=== PATIENT | female | born 1985 | race Caucasian/White ===

== ENCOUNTER 2016-06-28 16:22 | Inpatient (IN) | payer OTHER ==
[~2016-06-28] VITALS: Ht 162.6 cm; Wt 69.0 kg
[~2016-06-28 16:22] MED LIST: ACETAMINOPHEN325 MG PO; BACTRIM DS1 TAB PO; IBUPROFEN400 MG PO; PERCOCET1 TA1 PO
[2016-06-28 16:48] VITALS: BP 95/48
--- NOTE | 2016-06-28 17:01 | History & Physical Report ---
Admission Admit Date 06/28/16 Information Source Information Source: Self Reliability: Fair History Chief Complaint Chest stuffiness and back pain History of Present Illness 30 y/o female patient with PMH of IV drug use presented to [facility] ED with the c/o low back pain associated with fever and chills. On inital evaluation in ED there she was found to have UTI with possible pyelonephritis with hypotension. SHe was given ceftriaxone and zithromax and started on IV hydartion. She is transfered to [facility] for bed non availability in [facility]. On arrival to [facility] she was drowsy possibly from heroine intoxication and could not provide detailed history except for the c/o back pain, body aches and fever with chills for couple of days. Patient History 1. History of MRSA infection 2. Abscess of dorsum of right hand see above HPI 3. Heroin abuse 4. Asthma Social History lives in community h/o smoking cigarettes and mariunna no h/o alcohol abuse h/o IV drug abuse Family History MOTHER, ; Cause: Brain tumor. FATHER, , Age 50-60; Cause: Liver cancer, primary, with metastasis from liver to other site. Relation not specified for: FHx: brain tumor Medications and Allergies Medications Current Medications Sig/Chris Start time Last Medication Dose Route Stop Time Status Admin Pantoprazole Sodium 40 MG DAILY@0600 06/29 0600 AC IV Methadone HCl 10 MG TID 06/28 2200 AC PO Enoxaparin Sodium 40 MG DAILY 06/28 2005 UNVr SC Ceftriaxone Sodium/ 50 ML DAILY 06/28 1715 AC 06/28 Dextrose IV 1723 Azithromycin 500 MG DAILY 06/28 1650 AC 06/28 Sodium Chloride 250 ML IV 1740 Acetaminophen 650 MG Q6H PRN 06/28 164 AC PO Ondansetron HCl 4 MG Q6H PRN 06/28 1645 AC IV Sodium Chloride 1,000 ML ASDIRECTED 06/28 1645 06/28 IV 1809 Allergies Coded Allergies: No Known Drug Allergy (05/24/15) Review of Systems Constitutional Fever, Chills, Sweats, Weakness. Denies: Malaise. Eyes Denies: Vision Change, Conjunctival Inflammation, Eyelid Inflammation. ENT Denies: Nasal Congestion, Throat Pain, Throat Swelling. Respiratory Denies: Cough, Dry, SOB w/exertion, Wheezing, Hemoptysis. Cardiovascular Chest Pain. Denies: Palpitations, Orthopnea, PND, Edema. Gastrointestinal Denies: Nausea, Vomiting, Abdominal Pain, Diarrhea, Constipation. Genitourinary Dysuria, Frequency. Denies: Incontinence, Hematuria, Retention. Musculoskeletal Back Pain. Neurological Denies: Change in speech, Confusion, Seizures. Physical Exam Vital Signs / I&Os Vital Signs Date Time Temp Pulse Resp B/P Pulse O2 O2 Flow FiO2 Ox Delivery Rate 06/28 1851 98.1 81 20 108/67 100 Nasal 5.0 Cannula 06/28 1730 5.0 06/28 1648 97.5 73 20 95/48 88 Room Air General Appearance Alert, Oriented X3, No acute distress HEENT PERRLA, Moist mucous membranes Lungs Clear to auscultation Neck Supple, No JVD Cardiovascular Regular rate and rhythm, Normal S1 and S2 Abdomen Soft, No tenderness, No guarding, No rebound Extremities No edema Skin No Rashes, No Breakdown Neurological No lateralizing signs, patient drowsy LAB Results wbc: 10.9 H/H: 13/37.4 PLTS: 144 UA: cloudy, nitrite positive, WBC >50, Bacteria: many NA: 130 K: 3.7 CHLORIDE: 93 CO2: 21 GLUCOSE: 122 BUN: 15 CR: 0.5 LACTIC ACID: 1.4 AST: 54 ALT: 68 ALK PHOS: 76 TOTAL PROTEIN: 7.3 ALBUMIN: 3.1 URINE CULTURE/bLOOD CULTURE PENDING: NEEDS TO COLLECT REPORTS FROM [facility] Imaging Chest x-ray; no cardiopulmonary disease Assessment and Plan Problem List 1. Pyelonephritis Plan patient with SIRS symptoms with posiive UA and cva tenderness on ceftriaxone send UA and urine culture send blood culture 2. Heroin abuse Plan says uses heroine <1gm everyday monitor for wihdrawal symptoms started on methadone 10mh tid, titrate up as needed consider drug treatment program at the time of discharge 3. History of MRSA infection Plan needs to be on contact isolation 4. Nicotine dependence Plan counselled about smoking cessation apply nicotine patch if patient agrees 5. Asthma Plan stable duo nebs prn DVT px: Sq heparin GI Px: PPI E&M Codes Admission: Inpt-High/98962
--- NOTE | 2016-06-28 17:01 | History & Physical Report ---
Admission Admit Date 06/28/16 Information Source Information Source: Self Reliability: Fair History Chief Complaint Chest stuffiness and back pain History of Present Illness 30 y/o female patient with PMH of IV drug use presented to [facility] ED with the c/o low back pain associated with fever and chills. On inital evaluation in ED there she was found to have UTI with possible pyelonephritis with hypotension. SHe was given ceftriaxone and zithromax and started on IV hydartion. She is transfered to [facility] for bed non availability in [facility]. On arrival to [facility] she was drowsy possibly from heroine intoxication and could not provide detailed history except for the c/o back pain, body aches and fever with chills for couple of days. Patient History 1. History of MRSA infection 2. Abscess of dorsum of right hand see above HPI 3. Heroin abuse 4. Asthma Social History lives in community h/o smoking cigarettes and mariunna no h/o alcohol abuse h/o IV drug abuse Family History MOTHER, ; Cause: Brain tumor. FATHER, , Age 50-60; Cause: Liver cancer, primary, with metastasis from liver to other site. Relation not specified for: FHx: brain tumor Medications and Allergies Medications Current Medications Sig/Chris Start time Last Medication Dose Route Stop Time Status Admin Pantoprazole Sodium 40 MG DAILY@0600 06/29 0600 AC IV Methadone HCl 10 MG TID 06/28 2200 AC PO Enoxaparin Sodium 40 MG DAILY 06/28 2005 UNVr SC Ceftriaxone Sodium/ 50 ML DAILY 06/28 1715 AC 06/28 Dextrose IV 1723 Azithromycin 500 MG DAILY 06/28 1650 AC 06/28 Sodium Chloride 250 ML IV 1740 Acetaminophen 650 MG Q6H PRN 06/28 164 AC PO Ondansetron HCl 4 MG Q6H PRN 06/28 1645 AC IV Sodium Chloride 1,000 ML ASDIRECTED 06/28 1645 06/28 IV 1809 Allergies Coded Allergies: No Known Drug Allergy (05/24/15) Review of Systems Constitutional Fever, Chills, Sweats, Weakness. Denies: Malaise. Eyes Denies: Vision Change, Conjunctival Inflammation, Eyelid Inflammation. ENT Denies: Nasal Congestion, Throat Pain, Throat Swelling. Respiratory Denies: Cough, Dry, SOB w/exertion, Wheezing, Hemoptysis. Cardiovascular Chest Pain. Denies: Palpitations, Orthopnea, PND, Edema. Gastrointestinal Denies: Nausea, Vomiting, Abdominal Pain, Diarrhea, Constipation. Genitourinary Dysuria, Frequency. Denies: Incontinence, Hematuria, Retention. Musculoskeletal Back Pain. Neurological Denies: Change in speech, Confusion, Seizures. Physical Exam Vital Signs / I&Os Vital Signs Date Time Temp Pulse Resp B/P Pulse O2 O2 Flow FiO2 Ox Delivery Rate 06/28 1851 98.1 81 20 108/67 100 Nasal 5.0 Cannula 06/28 1730 5.0 06/28 1648 97.5 73 20 95/48 88 Room Air General Appearance Alert, Oriented X3, No acute distress HEENT PERRLA, Moist mucous membranes Lungs Clear to auscultation Neck Supple, No JVD Cardiovascular Regular rate and rhythm, Normal S1 and S2 Abdomen Soft, No tenderness, No guarding, No rebound Extremities No edema Skin No Rashes, No Breakdown Neurological No lateralizing signs, patient drowsy LAB Results wbc: 10.9 H/H: 13/37.4 PLTS: 144 UA: cloudy, nitrite positive, WBC >50, Bacteria: many NA: 130 K: 3.7 CHLORIDE: 93 CO2: 21 GLUCOSE: 122 BUN: 15 CR: 0.5 LACTIC ACID: 1.4 AST: 54 ALT: 68 ALK PHOS: 76 TOTAL PROTEIN: 7.3 ALBUMIN: 3.1 URINE CULTURE/bLOOD CULTURE PENDING: NEEDS TO COLLECT REPORTS FROM [facility] Imaging Chest x-ray; no cardiopulmonary disease Assessment and Plan Problem List 1. Pyelonephritis Plan patient with SIRS symptoms with posiive UA and cva tenderness on ceftriaxone send UA and urine culture send blood culture 2. Heroin abuse Plan says uses heroine <1gm everyday monitor for wihdrawal symptoms started on methadone 10mh tid, titrate up as needed consider drug treatment program at the time of discharge 3. History of MRSA infection Plan needs to be on contact isolation 4. Nicotine dependence Plan counselled about smoking cessation apply nicotine patch if patient agrees 5. Asthma Plan stable duo nebs prn DVT px: Sq heparin GI Px: PPI E&M Codes Admission: Inpt-High/18785
[2016-06-28 18:51] VITALS: BP 108/67
[2016-06-28 22:27] VITALS: BP 117/78
[2016-06-29 02:17] VITALS: BP 93/40
[2016-06-29 07:00] VITALS: BP 107/64
[2016-06-29 10:27] VITALS: BP 98/57
[2016-06-29 15:01] VITALS: BP 98/43
--- NOTE | 2016-06-29 15:51 | Progress Note ---
Subjective General patient is seen ay=t the bedside still c/o back pain, whihc is non specific, has blood cultures positive for staph, complete report needs to be collected from [facility] Constitutional Sweats. Denies: Fever, Chills, Weakness. Eyes Denies: Conjunctival Inflammation, Eyelid Inflammation, Redness. ENT Denies: Nasal Congestion, Mouth Pain, Mouth Swelling, Throat Pain, Throat Swelling. Respiratory Denies: Cough, Dry, SOB w/exertion, Wheezing, Hemoptysis, Pleuritic Pain. Cardiovascular Denies: Chest Pain, Palpitations, Orthopnea, PND, Edema. Gastrointestinal Denies: Nausea, Vomiting, Abdominal Pain, Diarrhea, Constipation, Melena. Genitourinary Dysuria. Musculoskeletal Back Pain. Neurological Denies: Incoordination, Change in speech, Confusion, Seizures. Physical Exam Vital Signs / I&Os Vital Signs Date Time Temp Pulse Resp B/P Pulse O2 O2 Flow FiO2 Ox Delivery Rate 06/29 1501 98.1 75 20 98/43 94 Room Air 0.0 06/29 1223 99.3 06/29 1027 100.0 89 22 98/57 96 Room Air 0.0 06/29 0959 2.0 06/29 0700 99.3 86 18 107/64 100 Nasal 2.0 Cannula 06/29 0423 2.0 06/29 0217 98.1 69 16 93/40 100 Nasal 2.0 Cannula 06/28 2227 98.2 78 20 117/78 100 Nasal 2.0 Cannula 06/28 2106 2.0 06/28 1851 98.1 81 20 108/67 100 Nasal 5.0 Cannula 06/28 1730 5.0 06/28 1648 97.5 73 20 95/48 88 Room Air I&O 06/28 0800 06/28 1600 06/29 0000 Intake Total 0 Output Total Balance 0 General Appearance Alert, Oriented X3, No acute distress HEENT PERRLA, Moist mucous membranes Lungs Clear to auscultation Cardiovascular Regular rate and rhythm, Normal S1 and S2, No murmurs, gallops, rubs Abdomen Soft, No tenderness, No guarding, No rebound Extremities No edema Neurological No lateralizing signs, sllepy but easily arousable LAB Results Laboratory Tests 06/29 06/29 06/29 0535 1100 1100 Chemistry Plasma Sodium (136 - 145 mmol/L) 138 Plasma Potassium (3.5 - 5.1 mmol/L) 3.7 Plasma Chloride (98 - 107 mmol/L) 106 CO2 (Enzymatic) (21 - 32 mmol/L) 23 BUN (7 - 18 mg/dL) 14 Creatinine (0.6 - 1.3 mg/dL) 0.6 Est GFR ( Amer) (mL/min) >60 Est GFR (Non-Af Amer) (mL/min) >60 Glucose (70 - 110 mg/dL) 84 Plasma Calcium (8.5 - 10.1 mg/dL) 7.9 Plasma Magnesium (1.8 - 2.4 mg/dL) 1.9 Total Bilirubin (0.0 - 1.0 mg/dL) 0.9 Direct Bilirubin (0 - 0.3 mg/dL) 0.4 AST (15 - 37 U/L) 34 ALT (12 - 78 U/L) 56 Alkaline Phosphatase (46 - 116 U/L) 72 Troponin Cancelled B-Natriuretic Peptide Cancelled Total Protein (6.4 - 8.2 g/dL) 5.8 Albumin (3.3 - 5.0 g/dL) 2.1 Hematology WBC (4.5 - 11.5 K/uL) 12.2 RBC (4.00 - 5.20 M/uL) 3.75 Hgb (12.0 - 16.0 gm/dL) 11.1 Hct (36.0 - 46.0 %) 33.8 MCV (80 - 100 fL) 90 MCH (26 - 34 pg) 30 RDW (11.6 - 14.8 %) 14.6 Neut % (Auto) (50 - 75 %) 79.8 Lymph % (Auto) (25 - 40 %) 13.6 [place] % (Auto) (3 - 14 %) 6.0 Eos % (Auto) (0 - 4 %) 0.5 Baso % (Auto) (0 - 2 %) 0.1 Plt Count, EDTA (150 - 400 K/uL) 137 PUBS MCHC (31 - 37 g/dL) 33 Assessment and Plan Problem List 1. Pyelonephritis Plan on ceftriaxone, zithromax moniotr WBC in am f/u urine culture 2. Bacteremia Plan final report still pending and needs to be collected form [facility] Vancomycin added for possible MRSA bacteremia 3. Nicotine dependence Plan encourage smoking cessation when more awake 4. Heroin abuse Plan moniotr for withdrawal on methadone 10mg TID, adjust as needed 5. Asthma Plan stable E&M Codes Rounding: Inpt-High/[id number]
[2016-06-29 19:04] VITALS: BP 97/52
[2016-06-29 22:30] VITALS: BP 114/53
[2016-06-30] VITALS (7 sets, daily range): BP systolic 87–116; BP diastolic 44–60
--- NOTE | 2016-06-30 11:32 | Progress Note ---
Subjective General RN reports pt spiked a fever again this morning. Pt states she is not feeling well and continues to complain of bilateral flank pain and mild nausea. She denies any vomiting. Pt denies dysuria. No other complaints or concerns at this time. Physical Exam Vital Signs / I&Os Vital Signs Date Time Temp Pulse Resp B/P Pulse O2 O2 Flow FiO2 Ox Delivery Rate 06/30 1116 98.6 82 18 91/46 92 Room Air 06/30 0719 101.3 95 18 111/58 95 Room Air 06/30 0207 99.7 63 16 116/60 96 Room Air 0.0 06/29 2230 98.2 83 18 114/53 96 Room Air 0.0 06/29 2128 Room Air 06/29 1904 98.6 85 20 97/52 94 Room Air 06/29 1501 98.1 75 20 98/43 94 Room Air 0.0 06/29 1223 99.3 I&O 06/30 0000 06/29 1600 06/29 0800 Intake Total 1850 300 Output Total 750 400 Balance 1100 300 -400 Other GENERAL: NAD; Pt laying comfortably in bed HEENT: AT/NC; PERRLA, EOMI; MM Moist CARDIAC: RRR, No M/R/G appreciated PULM: Clear to auscultation bilaterally ABD: Soft, NT, ND, Positive BS in all quadrants, Positive bilateral CVA tenderness; No hepatosplenomegaly appreciated EXT: No C/C/E in bilateral upper and lower extremity; No calve tenderness bilaterally SKIN: Warm, dry, pink, and intact NEURO: Alert and oriented x3; Following all commands PSYCH: Normal mood and affect LAB Results Laboratory Tests 06/30 06/30 06/30 06/30 1045 0530 0530 0530 Chemistry Plasma Sodium (136 - 145 mmol/L) 135 Plasma Potassium (3.5 - 5.1 mmol/L) 3.5 Plasma Chloride (98 - 107 mmol/L) 103 CO2 (Enzymatic) (21 - 32 mmol/L) 23 BUN (7 - 18 mg/dL) 8 Creatinine (0.6 - 1.3 mg/dL) 0.5 Est GFR ( Amer) (mL/min) >60 Est GFR (Non-Af Amer) (mL/min) >60 Glucose (70 - 110 mg/dL) 98 Plasma Calcium (8.5 - 10.1 mg/dL) 7.5 C-Reactive Protein (0.0 - 0.9 mg/dL) 11.0 Procalcitonin (0 - 0.5 ng/mL) 0.6 Hematology WBC (4.5 - 11.5 K/uL) 16.0 RBC (4.00 - 5.20 M/uL) 3.87 Hgb (12.0 - 16.0 gm/dL) 11.3 Hct (36.0 - 46.0 %) 35.0 MCV (80 - 100 fL) 90 MCH (26 - 34 pg) 29 RDW (11.6 - 14.8 %) 15.0 Neut % (Auto) (50 - 75 %) 76.4 Lymph % (Auto) (25 - 40 %) 14.6 [place] % (Auto) (3 - 14 %) 7.1 Eos % (Auto) (0 - 4 %) 1.7 Baso % (Auto) (0 - 2 %) 0.2 Plt Count, EDTA (150 - 400 K/uL) 218 PUBS MCHC (31 - 37 g/dL) 32 Urines Urine Color YELLOW Urine Appearance CLEAR Urine pH (5.0 - 8.0) 6.0 Ur Specific [place] (1.010 - 1.030) 1.010 Urine Protein (NEGATIVE) NEGATIVE Urine Ketones (NEGATIVE) NEGATIVE Urine Blood (NEGATIVE) 1+ Urine Nitrite (NEGATIVE) NEGATIVE Urine Bilirubin (NEGATIVE) NEGATIVE Urine Urobilinogen (0.2 - 1.0 EU/dL) 2.0 Ur Leukocyte Esterase (NEGATIVE) POSITIVE Urine RBC (0 - 1 rbc/hpf) 1-3 Urine WBC (0 - 1 wbc/hpf) 15-25 Ur Epithelial Cells (0 - 5 EPI/hpf) 10-15 Urine Bacteria (NONE SEEN) TRACE (<1+) Urine Glucose (NEGATIVE) NEGATIVE Urine Comment CULTURE INDICATED Microbiology Date/Time Procedure - Status Source Growth 06/30 1045 Urine Culture - RECD URINE CC 06/30 0927 Blood Culture - RECD BLOOD 06/30 0915 Blood Culture - RECD BLOOD Assessment and Plan Problem List 1. Pyelonephritis Plan - Present on admission - Worsening, as pt has spiked a temp this morning and her WBC count is increasing - Continue IV Rocephin for now - Blood cultures from [facility] were likely contaminated, therefore will stop IV Vancomycin now - Repeat blood cultures x2 - Repeat UA with culture now - Repeat CBC with diff in AM - Continue IV Normal Saline at current rate - Continue IV Dilaudid PRN for pain - Check Procalcitonin and CRP STAT - Monitor very closely 2. Asthma Plan - Stable - Not in acute exacerbation - Continue home medications 3. Heroin abuse Plan - Continue pts Methadone while in hospital - Pt does not appear to be in acute withdrawal 4. Nicotine dependence Plan - Pt counseled to quit smoking
[2016-07-01 04:09] VITALS: BP 103/61
[2016-07-01 07:39] VITALS: BP 101/45
[2016-07-01 10:23] VITALS: BP 113/57
--- NOTE | 2016-07-01 11:11 | Progress Note ---
Subjective General Pt states she is feeling better overall. She denies any abdominal pain, nausea, vomiting, diarrhea, fever and chills at this time. She states she continues to have bilateral CVA tenderness occasionally. No other complaints or concern s at this time. Physical Exam Vital Signs / I&Os Vital Signs Date Time Temp Pulse Resp B/P Pulse O2 O2 Flow FiO2 Ox Delivery Rate 07/01 1037 91 07/01 1023 98.8 83 16 113/57 91 07/01 0739 80 18 101/45 93 07/01 0409 98.8 83 24 103/61 97 Room Air 06/30 2229 99.1 76 22 96/44 95 Room Air 06/30 2053 0.0 06/30 1911 98.2 06/30 1902 83 24 103/47 91 Room Air 06/30 1606 61 98/49 06/30 1435 98.2 80 20 87/49 94 Room Air 06/30 1116 98.6 82 18 91/46 92 Room Air I&O 07/01 0000 06/30 1600 06/30 0800 Intake Total 6904 517 4389 Output Total 1010 700 700 Balance 277 -260 1006 Other GENERAL: NAD; Pt laying comfortably in bed HEENT: AT/NC; PERRLA, EOMI; MM Moist CARDIAC: RRR, No M/R/G appreciated PULM: Clear to auscultation bilaterally ABD: Soft, NT, ND, Positive BS in all quadrants; No hepatosplenomegaly appreciated EXT: No C/C/E in bilateral upper and lower extremity; No calve tenderness bilaterally SKIN: Warm, dry, pink, and intact NEURO: Alert and oriented x3; Following all commands PSYCH: Normal mood and affect LAB Results Laboratory Tests 07/01 06/30 0755 1330 Hematology WBC (4.5 - 11.5 K/uL) 12.8 RBC (4.00 - 5.20 M/uL) 3.74 Hgb (12.0 - 16.0 gm/dL) 11.1 Hct (36.0 - 46.0 %) 34.1 MCV (80 - 100 fL) 91 MCH (26 - 34 pg) 30 RDW (11.6 - 14.8 %) 15.5 Neut % (Auto) (50 - 75 %) 70 Lymph % (Auto) (25 - 40 %) 15 [place] % (Auto) (3 - 14 %) 6 Eos % (Auto) (0 - 4 %) 1 Baso % (Auto) (0 - 2 %) 0 Band Neutrophils % (0 - 8 %) 8 Metamyelocytes % (0 - 1 %) 0 Myelocytes (0 - 1 %) 0 Other Cell Type 0 Plt Count, EDTA (150 - 400 K/uL) 270 Anisocytosis (manual) 1+ PUBS MCHC (31 - 37 g/dL) 32 Toxicology Vancomycin Trough Cancelled Assessment and Plan Problem List 1. Pyelonephritis Plan - Improving - WBC cound is now 12.8 - Continue current IV antibiotics - Procalcitonin is 0.6 at this time - Repeat CBC with diff in AM - Repeat urine culture pending - Repeat blood cultures pending - IV Morphine PRN for pain 2. Asthma Plan - Not in acute exacerbation - Continue breathing treatments with Albuterol PRN 3. Heroin abuse Plan - Continue Methadone 10 mg TID for now - Pt to attend drug treatment post discharge from hospital 4. Trichomonas vaginalis infection Plan - Continue PO Flagyl
[2016-07-01 14:46] VITALS: BP 104/61
[2016-07-01 18:07] VITALS: BP 116/57
[2016-07-01 21:58] VITALS: BP 105/74
[2016-07-02 02:34] VITALS: BP 110/71
[2016-07-02 07:25] VITALS: BP 109/74
[2016-07-02 10:08] VITALS: BP 116/75
--- NOTE | 2016-07-02 13:40 | Progress Note ---
Subjective General Pt states she is feeling much better. Pt denies any further fever. She denies CVA tenderness at this time. Pt denies any further nausea or vomiting. Physical Exam Vital Signs / I&Os Vital Signs Date Time Temp Pulse Resp B/P Pulse O2 O2 Flow FiO2 Ox Delivery Rate 07/02 1008 99.3 77 16 116/75 94 Room Air 07/02 0725 98.8 72 18 109/74 96 Room Air 07/02 0234 98.4 66 18 110/71 93 Room Air 07/01 2245 98.4 07/01 2158 61 16 105/74 96 Room Air 0.0 07/01 2015 Room Air 07/01 1807 99.0 90 16 116/57 94 Room Air 0.0 07/01 1446 99.1 93 16 104/61 92 Room Air 0.0 I&O 07/02 0000 07/01 1600 07/01 0800 Intake Total 6316 068 3207 Output Total 350 800 800 Balance 1002 -560 887 Other GENERAL: NAD; Pt laying comfortably in bed HEENT: AT/NC; PERRLA, EOMI; MM Moist CARDIAC: RRR, No M/R/G appreciated PULM: Clear to auscultation bilaterally ABD: Soft, NT, ND, Positive BS in all quadrants; No hepatosplenomegaly appreciated NEURO: Alert and oriented x3; Following all commands PSYCH: Normal mood and affect LAB Results Laboratory Tests 07/02 07/02 0600 0600 Chemistry Plasma Sodium (136 - 145 mmol/L) 140 Plasma Potassium (3.5 - 5.1 mmol/L) 3.4 Plasma Chloride (98 - 107 mmol/L) 108 CO2 (Enzymatic) (21 - 32 mmol/L) 27 BUN (7 - 18 mg/dL) 5 Creatinine (0.6 - 1.3 mg/dL) 0.5 Est GFR ( Amer) (mL/min) >60 Est GFR (Non-Af Amer) (mL/min) >60 Glucose (70 - 110 mg/dL) 98 Plasma Calcium (8.5 - 10.1 mg/dL) 7.7 Procalcitonin (0 - 0.5 ng/mL) <0.5 Hematology WBC (4.5 - 11.5 K/uL) 11.7 RBC (4.00 - 5.20 M/uL) 3.41 Hgb (12.0 - 16.0 gm/dL) 10.0 Hct (36.0 - 46.0 %) 30.7 MCV (80 - 100 fL) 90 MCH (26 - 34 pg) 29 RDW (11.6 - 14.8 %) 14.8 Neut % (Auto) (50 - 75 %) 64.7 Lymph % (Auto) (25 - 40 %) 23.1 [place] % (Auto) (3 - 14 %) 8.0 Eos % (Auto) (0 - 4 %) 3.7 Baso % (Auto) (0 - 2 %) 0.5 Plt Count, EDTA (150 - 400 K/uL) 432 PUBS MCHC (31 - 37 g/dL) 32 Assessment and Plan Problem List 1. Pyelonephritis Plan - Stop IV Rocephin now - Start PO Levaquin 750 mg PO daily for 3 more days - Urine culture shows no growth to date - Repeat blood cultures show no growth to date - Repeat CBC with diff in AM - If WBC count does not increase in AM, pt may be discharged to home with PO Levaquin to complete course of ABX 2. Trichomonas vaginalis infection Plan - Continue PO Flagyl for now 3. Hypokalemia Plan - Will replace with 40 mEq of IV KCl now - Recheck K level in AM 4. Heroin abuse Plan - Continue Methadone while in hospital
[2016-07-02 14:15] VITALS: BP 101/63
[2016-07-02 19:05] VITALS: BP 121/71
[2016-07-02 23:15] VITALS: BP 117/81
[2016-07-03 02:30] VITALS: BP 110/68
[2016-07-03 06:34] VITALS: BP 125/70
[2016-07-03 10:35] VITALS: BP 127/72
[2016-07-03 15:24] VITALS: BP 123/71
--- NOTE | 2016-07-03 16:38 | Progress Note ---
Subjective General PT IS FEELING BETTER but is having chest congestion and wheezing this pm. She is homeles and thinks she would be best to make sure brething doesn't worsen. Constitutional Denies: Fever, Chills, Sweats. Eyes Denies: Pain, Vision Change, Conjunctival Inflammation. ENT Denies: Ear Pain, Ear Discharge, Nose Pain, Nasal Discharge, Nasal Congestion, Throat Pain. Respiratory Cough, SOB w/exertion, Wheezing. Cardiovascular Denies: Chest Pain, Palpitations. Gastrointestinal Denies: Nausea, Vomiting, Abdominal Pain, Diarrhea. Genitourinary Denies: Dysuria, Hematuria. Skin Denies: Rash, Lesions. Neurological Denies: Weakness, Numbness, Incoordination. Physical Exam Vital Signs / I&Os Vital Signs Date Time Temp Pulse Resp B/P Pulse O2 O2 Flow FiO2 Ox Delivery Rate 07/03 1524 98.6 70 20 123/71 92 Room Air 07/03 1035 98.4 67 18 127/72 94 Room Air 07/03 0634 98.2 76 18 125/70 97 Room Air 07/03 0230 98.6 59 20 110/68 95 Room Air 07/02 2315 99.3 72 20 117/81 92 Room Air 07/02 2010 Room Air 07/02 1905 98.1 70 18 121/71 91 Room Air I&O 07/02 0800 07/02 1600 07/03 0000 Intake Total 3974 148 6953 Output Total 800 Balance 733 862 5553 General Appearance Alert, Oriented X3, Cooperative HEENT Normal exam Lungs inspiratory and expiratory wheezes and rhonchi. Cardiovascular Regular rate and rhythm, Normal S1 and S2, No murmurs, gallops, rubs Abdomen Normal bowel sounds, Soft, No tenderness Extremities No cyanosis, No edema, Normal pulses, No tenderness Skin No Rashes, No Breakdown Neurological Normal speech, Normal tone, Sensation intact, Cranial nerves intact Assessment and Plan Problem List 1. Pyelonephritis Plan continue cephalexin and encourage fluids. 2. Trichomonas vaginalis infection Plan Continue metronidazole 500mg tid. 3. Asthma Plan begin Duoneb and albuterol. Will check chest x ray. E&M Codes Rounding: Inpt-Moderate/[id number]
--- NOTE | 2016-07-03 16:38 | Progress Note ---
Subjective General PT IS FEELING BETTER but is having chest congestion and wheezing this pm. She is homeles and thinks she would be best to make sure brething doesn't worsen. Constitutional Denies: Fever, Chills, Sweats. Eyes Denies: Pain, Vision Change, Conjunctival Inflammation. ENT Denies: Ear Pain, Ear Discharge, Nose Pain, Nasal Discharge, Nasal Congestion, Throat Pain. Respiratory Cough, SOB w/exertion, Wheezing. Cardiovascular Denies: Chest Pain, Palpitations. Gastrointestinal Denies: Nausea, Vomiting, Abdominal Pain, Diarrhea. Genitourinary Denies: Dysuria, Hematuria. Skin Denies: Rash, Lesions. Neurological Denies: Weakness, Numbness, Incoordination. Physical Exam Vital Signs / I&Os Vital Signs Date Time Temp Pulse Resp B/P Pulse O2 O2 Flow FiO2 Ox Delivery Rate 07/03 1524 98.6 70 20 123/71 92 Room Air 07/03 1035 98.4 67 18 127/72 94 Room Air 07/03 0634 98.2 76 18 125/70 97 Room Air 07/03 0230 98.6 59 20 110/68 95 Room Air 07/02 2315 99.3 72 20 117/81 92 Room Air 07/02 2010 Room Air 07/02 1905 98.1 70 18 121/71 91 Room Air I&O 07/02 0800 07/02 1600 07/03 0000 Intake Total 6922 685 1091 Output Total 800 Balance 681 943 5460 General Appearance Alert, Oriented X3, Cooperative HEENT Normal exam Lungs inspiratory and expiratory wheezes and rhonchi. Cardiovascular Regular rate and rhythm, Normal S1 and S2, No murmurs, gallops, rubs Abdomen Normal bowel sounds, Soft, No tenderness Extremities No cyanosis, No edema, Normal pulses, No tenderness Skin No Rashes, No Breakdown Neurological Normal speech, Normal tone, Sensation intact, Cranial nerves intact Assessment and Plan Problem List 1. Pyelonephritis Plan continue cephalexin and encourage fluids. 2. Trichomonas vaginalis infection Plan Continue metronidazole 500mg tid. 3. Asthma Plan begin Duoneb and albuterol. Will check chest x ray. E&M Codes Rounding: Inpt-Moderate/[id number]
--- NOTE | 2016-07-03 17:35 | DIAGNOSTIC IMAGING REPORT ---
PROCEDURE: XR CHEST 2 VIEW INDICATION: Cough and fever, initial encounter TECHNIQUE: PA and lateral view. COMPARISON: None. FINDINGS: Mild bibasilar infiltrates and small pleural effusions, right greater than left. There is also a small peripheral left mid lung infiltrate. Cardiovascular structures are normal. Bony thorax is unremarkable. IMPRESSION: 1. Bibasilar pneumonia with small bilateral pleural effusions, right greater than left
[2016-07-03 23:24] VITALS: BP 116/73
[2016-07-04 02:50] VITALS: BP 111/72
[2016-07-04 07:28] VITALS: BP 130/79
[2016-07-04 10:28] VITALS: BP 118/75
--- NOTE | 2016-07-04 11:01 | Progress Note ---
Subjective General Pt. is copntinuing with congh and some wsheezing. Nebulizers are helping. No problems with passing urine. No complaints of vag. discharge. Constitutional Malaise. Denies: Fever, Chills, Sweats. Eyes Denies: Pain, Vision Change, Conjunctival Inflammation. ENT Denies: Ear Pain, Ear Discharge, Nose Pain, Nasal Discharge, Mouth Pain, Mouth Swelling, Throat Pain. Respiratory Cough, Wheezing, Sputum. Cardiovascular Denies: Chest Pain, Palpitations. Gastrointestinal Denies: Nausea, Vomiting, Abdominal Pain, Diarrhea. Genitourinary Denies: Dysuria, Frequency, Incontinence. Musculoskeletal Denies: Back Pain (upper back pain). Skin Denies: Rash, Lesions, Other (no itching). Neurological Denies: Weakness, Numbness, Incoordination, Change in speech, Confusion, Seizures. Physical Exam Vital Signs / I&Os Vital Signs Date Time Temp Pulse Resp B/P Pulse O2 O2 Flow FiO2 Ox Delivery Rate 07/04 1040 93 07/04 1028 97.5 72 18 118/75 94 Room Air 07/04 0728 97.9 55 18 130/79 93 Room Air 07/04 0315 94 07/04 0250 98.4 65 20 111/72 88 Room Air 07/03 2324 98.1 60 20 116/73 92 Room Air 07/03 1524 98.6 70 20 123/71 92 Room Air I&O 07/03 0800 07/03 1600 07/04 0000 Intake Total 2184 1638 690 Output Total 2050 1150 1500 Balance 134 488 -810 General Appearance Alert, Oriented X3, Cooperative, No acute distress HEENT Normal exam Lungs bilaterl inspiratory rhonchi and expiratory ronchi and wheezes R> L Cardiovascular Normal exam, Regular rate and rhythm, Normal S1 and S2, No murmurs, gallops, rubs Abdomen Normal bowel sounds, Soft, No tenderness, No guarding, No rebound Extremities No cyanosis, No clubbing, No edema, Normal pulses Skin No Rashes Neurological Normal speech, Normal tone, Sensation intact, Cranial nerves intact LAB Results Microbiology Date/Time Procedure - Status Source Growth 07/04 1015 MRSA Screen - RECD NASAL Assessment and Plan Problem List 1. Pneumonia Plan CXR done last nighrt shows basilar infiltrates and mid L lung infiltrate consistent with pneumonia. Pt not ill appearing. Will DC cephalexin and add doxycycline. Levofloxacin not ordered due to potential interaction with methadone. 2. Asthma Plan Continue nebulized meds and Tx pneumonia. 3. Pyelonephritis Plan Clinically resolved. Encourage po fluids. 4. Trichomonas vaginalis infection Plan Continue metronidazole x 15 doses (5d). 5. Heroin abuse Plan Stable with current dose of Methadone. E&M Codes Rounding: Inpt-Moderate/[id number]
[2016-07-04 15:25] VITALS: BP 112/60
[2016-07-04 18:33] VITALS: BP 104/52
[2016-07-04 22:27] VITALS: BP 137/83
[2016-07-05 02:27] VITALS: BP 131/86
[2016-07-05 07:00] VITALS: BP 130/70
[2016-07-05 11:16] VITALS: BP 130/73
[2016-07-05] MEDS ORDERED: DOXYCYCLINE100 MG PO (13:59)
[2016-07-05] MEDS ORDERED: CEFTIN500 MG PO (13:59)
[2016-07-05] MEDS ORDERED: IPRATROPIUM BROMIDE/ IN (13:59)
[2016-07-05] MEDS ORDERED: METHADONE HCL10 MG PO (13:59)
[2016-07-05] MEDS ORDERED: NICOTINE T14 MG/24 H TOP (13:59)
[2016-07-05] MEDS ORDERED: MAG6464 MG PO (14:01)
--- NOTE | 2016-07-05 14:04 | Provider's Discharge Care Plan ---
Problem, Goal, Plan Problem List 1. Pyelonephritis Goals: Improve disease control, Prevent disease progress Instructions: Follow up as directed, Take meds as directed 2. Hypomagnesemia Goals: Improve disease control, Improved health/wellness, Improve nutrition status, Prevent disease progress Instructions: Follow up as directed, Take meds as directed 3. Pneumonia Goals: Improve disease control, Improve function, Improved health/wellness, Prevent disease progress Instructions: Follow up as directed, Take meds as directed 4. Asthma Goals: Improve disease control, Prevent disease progress Instructions: Follow up as directed, Take meds as directed 5. Heroin abuse Goals: Improve disease control, Improve function, Improved health/wellness, Increase independence, Prevent disease progress Instructions: Follow up as directed, Take meds as directed, Reduce stress, Stop smoking, Follow-up with methadone treatment program as scheduled
[2016-07-05 14:15] VITALS: BP 104/46
--- NOTE | 2016-07-05 17:07 | Discharge Summary ---
Discharge Summary Report Admit Date 06/28/16 Discharge Date 07/05/16 Admission Diagnosis 1. Pyelonephritis 2. Illicit drug use-heroin 3. Nicotine dependence-smoking 4. Asthma 5. Opiate dependence Discharge Diagnosis 1. Pyelonephritis 2. Illicit drug use-heroin 3. Nicotine dependence-smoking 4. Asthma 5. Opiate dependence 6. Pneumonia 7. Hypomagnesemia 8. Trichomonas vaginalis Brief History The patient is a 30-year-old white female with a significant past medical history of asthma, nicotine dependence-smoking, illicit drug use-heroin, opiate dependence, who presented to [facility] emergency department on the day of admission secondary to complaints of low back pain. ER evaluation was consistent with pyelonephritis, illicit drug use-heroin, asthma. Secondary to the above, the patient was admitted by Dr. Garcia for further evaluation and treatment. For other history present illness, past medical history, family history, social history, review of systems, and admission physical examination please see the patient's history and physical examination and ER visit note in the patient's medical record. Hospital Course The following problems and their management were noted during the patient's hospitalization: 1. Pyelonephritis The patient was admitted with findings of pyelonephritis. Antimicrobials were started at another institution prior to transfer to our facility. Urine C&S here was negative. The patient was treated with IV followed by by mouth antimicrobials. She was afebrile on discharge. The patient was discharged on Ceftin 500 mg by mouth twice a day. 2. Illicit drug use-heroin The patient was admitted with findings of opiate (heroin) abuse/dependence. Patient was treated with methadone to her hospital stay. Symptoms were well- controlled with methadone 10 mg by mouth 3 times a day. It was recommended the patient to enroll in methadone treatment program. Discharge planning 8 and the patient in setting up enrollment in methadone treatment program post discharge. 3. Nicotine dependence-smoking Patient has a history of nicotine dependence-smoking. She underwent smoking cessation education. NicoDerm patch on discharge. Encourage smoking abstinence. 4. Asthma Patient has a history of asthma. This was adequately controlled her hospital stay. She was discharged on DuoNeb one via nebulizer every 6 hours when necessary for wheezing. 5. Opiate dependence See above 6. Pneumonia Patient had findings suggestive of pneumonia. Chest x-ray showed bibasilar pneumonia. She was treated with IV followed by by mouth antimicrobials and discharged on combination of doxycycline and Ceftin. Outpatient follow up with PCP. 7. Hypomagnesemia Patient with findings of hypomagnesemia. She was discharged on magnesium supplementation. Outpatient follow-up with PCP. See discharge instructions 8. Trichomonas vaginalis Patient treated with full course of Flagyl. Outpatient follow-up with PCP. General Appearance Alert, Oriented X3, Cooperative, No acute distress Lungs minimal scattered rhonchi. No significant wheezes. Cardiovascular Regular Rate, Normal S1, Normal S2, No murmurs, Gallops, Rubs Abdomen Normal bowel sounds, Soft, No tenderness Neurological Strength at 5/5 X4 ext, Cranial nerves 3-12 NL Psych/Mental Status Mental status NL, Mood NL Lab/Imaging Laboratory Tests 07/05 0650 Chemistry Plasma Sodium (136 - 145 mmol/L) 140 Plasma Potassium (3.5 - 5.1 mmol/L) 4.3 Plasma Chloride (98 - 107 mmol/L) 107 CO2 (Enzymatic) (21 - 32 mmol/L) 30 BUN (7 - 18 mg/dL) 8 Creatinine (0.6 - 1.3 mg/dL) 0.6 Est GFR ( Amer) (mL/min) >60 Est GFR (Non-Af Amer) (mL/min) >60 Glucose (70 - 110 mg/dL) 99 Plasma Calcium (8.5 - 10.1 mg/dL) 7.9 Plasma Magnesium (1.8 - 2.4 mg/dL) 1.7 Hematology WBC (4.5 - 11.5 K/uL) 12.4 RBC (4.00 - 5.20 M/uL) 3.88 Hgb (12.0 - 16.0 gm/dL) 11.2 Hct (36.0 - 46.0 %) 34.9 MCV (80 - 100 fL) 90 MCH (26 - 34 pg) 29 RDW (11.6 - 14.8 %) 15.0 Gran % (53 - 90) 65.2 Lymph % (Auto) (25 - 40 %) 27.7 [place] % (Auto) (3 - 14 %) 7.1 Plt Count, EDTA (150 - 400 K/uL) 549 PUBS MCHC (31 - 37 g/dL) 32 Discharge Instructions/Meds For other recommendations regarding discharge diet, activity, followup, and discharge medications please see the patient's discharge instructions. Discharge condition: Fair, improved Greater than 30 min. was spent in the patient's discharge preparation including discharge interview and physical examination, progress note, discharge instructions, and discharge summary The patient was interviewed and examined on the day of discharge. E&M Codes Discharge: Inpt >30 min spent/[id number]
== END 2016-07-05 16:30 | disposition home or self-care (01) | DRG 463 ==
LOC: ACUTE2 SRH 16:22
PROVIDERS: ADMIT Internal Medicine
DX: N12 Tubulo-interstitial nephritis, not specified as acute or chronic (principal); J18.9 Pneumonia, unspecified organism; J45.909 Unspecified asthma, uncomplicated; E87.6 Hypokalemia; E83.42 Hypomagnesemia; A59.01 Trichomonal vulvovaginitis; F11.20 Opioid dependence, uncomplicated; F17.210 Nicotine dependence, cigarettes, uncomplicated; Z59.0 Homelessness
CPT/HCPCS: 84351; 90004; 90047; 90065; 90074; 90469; 91295; 91585; 92132; 92710; 92720; 93004; 95059; 95061